=== PATIENT | female | born 1985 | race Caucasian/White ===

== ENCOUNTER 2018-04-26 09:50 | Inpatient (IN) | payer OTHER, SELFPAY ==
[2018-04-26 09:44] VITALS: BMI 23.6
[2018-04-26 09:49] LABS: ROM Internal Control Test YES-OK TO RESULT pt. (Internal QC)
[2018-04-26 09:50] LABS: ROM Patient Test POSITIVE (Negative)
[2018-04-26] MEDS: Betamethasone/Betamethasone 30 MG/5 ML Vial 12 MG IM (10:29)
[2018-04-26] MEDS: Lactated Ringers 1,000 ML 50 ML IV ×2 (10:55→18:39)
[2018-04-26 11:14] LABS: Hematocrit 33.5 % (37-47); Hemoglobin 10.7 g/dl (12.0-15.0); Mean Corp Hgb Conc 31.9 g/gl (32-36); Mean Corpuscular Hgb 28.3 pg (27.0-32.0); Mean Corpuscular Volume 88.6 fL (81-99); Mean Platelet Vol. 10.1 fl (6.2-12.0); Platelet Count 227 K/mm3 (150-450); RBC Distribution Width CV 13.3 % (11.6-14.6); RBC Distribution Width SD 42.6 fl (35.1-43.9); Red Blood Count 3.78 M/mm3 (4.2-5.4)
[2018-04-26 11:21] LABS: Scan Indicated on CBC? Y/N NO
[2018-04-26 11:48] LABS: Group B Strep DNA By PCR Negative (Negative); Internal Control PASS; Probe Check PASS; Specimen Processing Control PASS
[2018-04-26] MEDS: Oxytocin 30 units/NS 500 ml 30 UNITS/500 ML IV.SOLN IV (11:48)
[2018-04-26] MEDS: fentaNYL-bupivacaine (epidural) 100 ML BAG EPIDURAL ×2 (14:51→19:13)
--- NOTE | 2018-04-26 16:34 | PCM.HP.OB ---
History Date of Admission: 04/26/18 Final GRETTA: 05/29/18 Final GRETTA Source: US <20 weeks Gestational age: 35 Weeks and 2 Days History of this : 32-year-old 2 para 1 female presents at 35 weeks 2 days with EDC of 3 05/09/2018 LMP consistent with first trimester ultrasound can presents complaining of rupture of membranes. She had a large gush of clear fluid at 6:45 AM. She not had any significant contractions before this. She had no gross vaginal bleeding. Her has been uncomplicated to date. Last was an uncomplicated vaginal delivery at 37 weeks after spontaneous rupture of membranes. Allergies No Known Drug Allergies Allergy (Verified 04/26/18 09:45) Unknown Home Medications: Home Medications Vits [Prenatabs FA ] 1 tablet PO DAILY 02/18/13 Smoking Status: Never smoker Alcohol: None Number of Fetus(es): 1 Heart Tracing: Normal baseline, moderate variability, spontaneous accelerations. no Recurrent deceleration TOCO Analysis: Contractions every 3 to 4 minutes History Past Pregnancies: Past Pregnancies Delivery Date Name GA/Weeks Outcome Route Weight Infant Gender Labor Length Anesthesia Delivery Location Provider FOB Expected Delivery Method: Spontaneous Vaginal Review of Systems Constitutional: Denies: Chills, Fever Cardiovascular: Denies: Chest Pain Respiratory: Denies: Cough Skin: Denies: Rash Physical Exam General: Alert, Cooperative, No apparent distress Cardiovascular: Regular rate Lungs: Normal air movement Abdomen: Soft, Non Tender, Gravid, Appropriate for Gestational Age Extremities:: No edema [employer]: Normal external genitalia Estimated gestational size: Appropriate for gestational size Presentation: Cephalic Cervix Dilation (cm): 3 - mid position, medium consistency Station: -2 Effacement (%): 70 Assessment/Plan This is a 32 year-old, at 35-2/7 weeks gestation with premature rupture of membranes. Received betamethasone IM x1. Group B strep was negative. 1 dose of antibiotic prophylaxis was given before rapid test came back negative. No need for further antibiotics if patient remains afebrile. Estimated weight is approximately 3000 g and pelvis is clinically adequate to expect vaginal delivery Epidural, nitrous oxide or Nubain as needed for pain control.
[2018-04-26] MEDS: Oxytocin 30 units/NS 500 ml 30 UNITS/500 ML IV.SOLN 334 UNITS IV (20:27)
--- NOTE | 2018-04-26 20:57 | PCM.DCVAG ---
Discharge Diet: No Restrictions Discharge Activity: Return to Normal Activity, May not drive while taking narcotic pain medications., May Shower May resume sexual activity in: 4-6 weeks Additional Activity Instructions:: Nothing in the vagina for 4-6 weeks. You may return to work/school in 6 weeks. Call your doctor if your incision/area has: Continuous Slow Oozing, Sudden Increased Bleeding, Increased Pain/ Swelling, Increased Redness, Foul Smelling Discharge Additional Instructions: If you experience any of the following, contact your healthcare provider. Bleeding that soaks a pad every hour for 2 hours Fever 100.4 or higher Unrelieved incision or abdominal pain Swelling, redness, discharge or bleeding from your incision or episiotomy site Your incision begins to separate Problems urinating (including inability to urinate or burning while urinating). Visual changes Severe headache Flu-like symptoms Pain or redness in one of both of your breasts Pain, warmth, tenderness or swelling in your legs, especially the calf area Frequent nausea and vomiting Symptoms of depression or anxiety If you experience any of the following, call 911 or go to the nearest Emergency Room. Chest pain Problems breathing Seizure activity Partial or complete paralysis of a body part, slurred speech, weakness or drooping of the face, or a sudden inability to walk or hold your balance Allergies/Adverse Reactions: Allergies No Known Drug Allergies Allergy (Verified 04/26/18 09:45) Unknown Medications to take at Discharge Vits [Prenatabs FA ] 1 tablet PO DAILY 02/18/13 Please Follow Up With: Enedelia Garcia MD - [phone] When: Call to make an appointment with your doctor in 1-2 weeks if desired and 6 weeks. If you had elevated Blood Pressure or 4th degree laceration you will need to be seen in 2 weeks. Test Results: Test results from this visit will be discussed in further detail at your follow-up appointment, if applicable.
--- NOTE | 2018-04-26 20:58 | DCINST_ITS ---
Discharge Diet: No Restrictions Discharge Activity: Return to Normal Activity, May not drive while taking narcotic pain medications., May Shower May resume sexual activity in: 4-6 weeks Additional Activity Instructions:: Nothing in the vagina for 4-6 weeks. You may return to work/school in 6 weeks. Call your doctor if your incision/area has: Continuous Slow Oozing, Sudden Increased Bleeding, Increased Pain/ Swelling, Increased Redness, Foul Smelling Discharge Additional Instructions: If you experience any of the following, contact your healthcare provider. * Bleeding that soaks a pad every hour for 2 hours * Fever 100.4 or higher * Unrelieved incision or abdominal pain * Swelling, redness, discharge or bleeding from your incision or episiotomy site * Your incision begins to separate * Problems urinating (including inability to urinate or burning while urinating). * Visual changes * Severe headache * Flu-like symptoms * Pain or redness in one of both of your breasts * Pain, warmth, tenderness or swelling in your legs, especially the calf area * Frequent nausea and vomiting * Symptoms of depression or anxiety If you experience any of the following, call 911 or go to the nearest Emergency Room. * Chest pain * Problems breathing * Seizure activity * Partial or complete paralysis of a body part, slurred speech, weakness or drooping of the face, or a sudden inability to walk or hold your balance Allergies/Adverse Reactions: Allergies No Known Drug Allergies Allergy (Verified 04/26/18 09:45) Unknown Medications to take at Discharge Vits [Prenatabs FA ] 1 tablet PO DAILY 02/18/13 Please Follow Up With: Enedelia Garcia MD - [phone] When: Call to make an appointment with your doctor in 1-2 weeks if desired and 6 weeks. If you had elevated Blood Pressure or 4th degree laceration you will need to be seen in 2 weeks. Test Results: Test results from this visit will be discussed in further detail at your follow- up appointment, if applicable.
[2018-04-26] MEDS: Oxytocin 30 units/NS 500 ml 30 UNITS/500 ML IV.SOLN 167 UNITS IV (20:59)
[2018-04-26] MEDS: 0.9% Saline Lock 10 ML Syringe IV (22:51)
[2018-04-27 01:50] VITALS: BP 124/79; PULSE 81; RESP 18; TEMP 37.2; O2SAT 99
[2018-04-27 05:11] VITALS: BP 131/73; PULSE 75; RESP 16; TEMP 37.2; O2SAT 99
[2018-04-27] MEDS: Acetaminophen 500 MG Tablet 1000 MG PO (05:18)
[2018-04-27 08:00] VITALS: BP 122/80; PULSE 90; RESP 18; TEMP 37.2
[2018-04-27 12:00] VITALS: BP 126/83; PULSE 88; RESP 18; TEMP 36.4
[2018-04-27] MEDS: Ibuprofen 100 MG/5 ML UDC 800 MG PO ×2 (12:00→19:53)
--- NOTE | 2018-04-27 12:41 | PCM.OB.VAG ---
Vaginal Delivery Maternal Presentation: Spontaneous Rupture of Membranes Method of Induction: Pitocin Medical Reason for Induction: Premature Rupture of Membranes - Amniotic Membrane Rupture Type: Spontaneous at home Amniotic Fluid Description: Clear Final GRETTA: 05/29/18 Gestational age: 35w 2d Date of Procedure: 04/26/18 Pre-Operative Diagnosis: premature rupture of membranes at 35 weeks Post-Operative Diagnosis: same Surgery/ Procedure Performed: Spontaneous Vaginal Delivery Type of Anesthesia: Epidural Description of Procedure: A vigorous male infant was delivered SALVATORE over a second-degree perineal laceration. A tight nuchal cord x1 was reduced. The remainder the infant was delivered with maternal pushing and gentle traction only in less than 15 seconds. The Pitocin infusion was initiated for active management of the third stage. The cord was clamped and cut after 1 minute. The infant was attended to by the waiting nursing staff boat joiner helper. The placenta was delivered spontaneously and intact. The cervix and vagina were intact. The second-degree perineal laceration was repaired with 3-0 Vicryl suture in a running standard fashion. Sponge and needle counts were correct. A vaginal sweep was completed by me. Presentation: SALVATORE Placental Delivery Description: Spontaneous Placenta Disposition: Sent to Pathology Cord Vessel Description: 3 Vessels Nuchal Cord Compression: Without compression Cord Gases drawn per routine: ABG, VBG Cord Entanglement: Around neck x 1, tight Drain: Baltazar to straight drain Estimated Blood Loss: 300 A gender: Male (1 minute): 8 (5 minute): 7 Episiotomy Description: None Laceration: 2nd degree Medications given after delivery: IV Pitocin Complications: None
--- NOTE | 2018-04-27 12:55 | PCM.PN.OB ---
Subjective: Pain well controlled. Average lochia. No complaints. - Physical Exam General: Alert, Cooperative, No apparent distress Vital Signs Temp Pulse Resp BP Pulse Ox 98.9 F 90 18 122/80 H 99 04/27/18 08:00 04/27/18 08:00 04/27/18 08:00 04/27/18 08:00 04/27/18 05:11 Oxygen Delivery Method Room Air Weight: 66.315 kg Body Mass Index (BMI) 23.6 Intake and Output for Last 24 Hours 04/25/18 04/26/18 04/27/18 23:59 23:59 23:59 Intake Total 5674 / 5674 Output Total 2850 / 2850 2099 / 2099 Balance 2824 / 2824 -2100 / -2099 Medical Necessity - Tobacco Use Smoking Status: Never smoker Assessment/Plan day #1. is in the special care nursery but doing well. Patient will work on pumping Routine care for patient.
[2018-04-27 15:59] VITALS: BP 111/66; PULSE 64; RESP 13; TEMP 36.8; O2SAT 97
[2018-04-27 19:45] VITALS: BP 111/73; PULSE 70; RESP 18; TEMP 37.1; O2SAT 99
[2018-04-28 05:04] VITALS: BP 101/69; PULSE 87; RESP 18; TEMP 36.8
[2018-04-28] MEDS: Ibuprofen 100 MG/5 ML UDC 800 MG PO ×2 (05:39→15:42)
[2018-04-28 08:34] VITALS: BP 120/69; PULSE 70; RESP 18; TEMP 36.6
--- NOTE | 2018-04-28 08:38 | PCM.PN.OB ---
Subjective: pain well controlled, average lochia, no N/V, no BM yet - Physical Exam General: Alert, Cooperative, No apparent distress Abdomen: Soft Vital Signs Temp Pulse Resp BP Pulse Ox 97.9 F 70 18 120/69 99 04/28/18 08:34 04/28/18 08:34 04/28/18 08:34 04/28/18 08:34 04/27/18 19:45 Oxygen Delivery Method Room Air Weight: 66.315 kg Body Mass Index (BMI) 23.6 Intake and Output for Last 24 Hours 04/26/18 04/27/18 04/28/18 23:59 23:59 23:59 Intake Total 5674 / 5674 Output Total 2850 / 2850 2099 / 2099 Balance 2824 / 2824 -2099 / -2099 Medical Necessity - Tobacco Use Smoking Status: Never smoker Assessment/Plan PPD#2 routine care infant able to latch on now, still in special care nursery patient d/c to [facility]
--- NOTE | 2018-04-28 08:42 | PN.OBGYN_ITS ---
Subjective: pain well controlled, average lochia, no N/V, no BM yet - Physical Exam General: Alert, Cooperative, No apparent distress Abdomen: Soft Vital Signs Temp Pulse Resp BP Pulse Ox 97.9 F 70 18 120/69 99 04/28/18 08:34 04/28/18 08:34 04/28/18 08:34 04/28/18 08:34 04/27/18 19:45 Oxygen Delivery Method Room Air Weight: 66.315 kg Body Mass Index (BMI) 23.6 Intake and Output for Last 24 Hours 04/26/18 04/27/18 04/28/18 23:59 23:59 23:59 Intake Total 5674 / 5674 Output Total 2850 / 2850 2099 / 2099 Balance 2824 / 2824 -2099 / -2099 Medical Necessity - Tobacco Use Smoking Status: Never smoker Assessment/Plan PPD#2 routine care infant able to latch on now, still in special care nursery patient d/c to [facility]
[2018-04-28 14:00] VITALS: BP 122/72; PULSE 88; RESP 18; TEMP 36.8
[2018-04-28 19:00] VITALS: BP 128/62; PULSE 72; RESP 16; TEMP 36.8
--- NOTE | 2018-04-28 19:55 | NURSING ---
1900- discharged to courtesy room
== END 2018-04-28 19:00 | disposition home or self-care (01) | DRG 807 ==
LOC: WPOUT 09:54
PROVIDERS: Obstetrics & Gynecology; Admitting Provider Obstetrics & Gynecology; Referring Provider Obstetrics & Gynecology; Visit Provider Obstetrics & Gynecology
DX: O42.113 Preterm premature rupture of membranes, onset of labor more than 24 hours following rupture, third trimester (principal); Z37.0 Single live birth; O69.81X0 Labor and delivery complicated by cord around neck, without compression, not applicable or unspecified; O70.1 Second degree perineal laceration during delivery; Z3A.35 35 weeks gestation of pregnancy
CPT/HCPCS: 59025; 59050; 84112; 85027; 86850; 86900; 87081; 87653; 99218; J7120; A4216; G0378; J0702

== ENCOUNTER 2020-06-10 05:34 | Inpatient (IN) | payer OTHER, SELFPAY ==
[2020-06-10] VITALS (36 sets, daily range): BP systolic 106–146; BP diastolic 58–88; PULSE 68–105; RESP 18; TEMP 36.5–37.4; O2SAT 98–100; BMI 25.8
[2020-06-10 05:33] LABS: ROM Internal Control Test YES-OK TO RESULT pt. (Internal QC)
[2020-06-10 05:34] LABS: ROM Patient Test POSITIVE (Negative)
[2020-06-10] MEDS: Lactated Ringers 1,000 ML 50 ML IV (05:50)
[2020-06-10 06:11] LABS: Absolute Lymphocyte Count 2.59 X10^3/uL (0.83-4.51); Absolute Neutrophil Count 5.4 X10^3/uL (2.0-7.7); Basophil# 0.03 X10^3/uL; Basophil% 0.3 % (0-1); Eosinophil# 0.08 X10^3/uL; Eosinophils% 0.9 % (0-5); Hematocrit 33.9 % (37-47); Hemoglobin 10.7 g/dL (12.0-15.0); Lymphocyte # 2.59 X10^3/ul (4.0); Lymphocyte % 28.8 % (19-41); Mean Corp Hgb Conc 31.6 g/dL (32-36); Mean Corpuscular Hgb 28.3 pg (27.0-32.0); Mean Corpuscular Volume 89.7 fL (81-99); Monocyte% 8.9 % (0-10); NRBC Flagged by Analyzer 0 % (0-5); Neutrophil % 60.2 % (47-70); Platelet Count 254 K/mm3 (150-450); RBC Distribution Width CV 13.3 % (11.6-14.6); RBC Distribution Width SD 43.8 fl (35.1-43.9); Red Blood Count 3.78 M/mm3 (4.2-5.4)
[2020-06-10] MEDS: Lactated Ringers 500 ML 999 ML IV (07:45)
[2020-06-10] MEDS: fentaNYL-bupivacaine (epidural) 100 ML BAG EPIDURAL (08:43)
[2020-06-10] MEDS: Oxytocin 30 units/NS 500 ml 30 UNITS/500 ML IV.SOLN IV (08:55)
--- NOTE | 2020-06-10 11:35 | PCM.HP.OB ---
- Problem List (1) 37 weeks gestation of Status: Acute (2) Multiparous Status: Acute (3) SROM (spontaneous rupture of membranes) Status: Acute (4) AMA (advanced maternal age) multigravida 35+ Status: Acute (5) History of delivery Status: Acute History Date of Admission: 06/10/20 Final GRETTA: 07/01/20 Final GRETTA Source: US <20 weeks Gestational age: 37 Weeks and 0 Days History of this : This is a 34 year-old, at 37 wk gestation who presents with SROM for clear fluid at home. Having irregular ctx's. Medical History: Medical History (Last Updated 06/10/20 @ 11:[address] Tanya Saez, DO) History of depression Z86.59 History of migraine Z86.69 IBS (irritable bowel syndrome) K58.9 Allergies No Known Drug Allergies Allergy (Verified 06/10/20 05:19) Unknown Home Medications: Home Medications Vits [Prenatabs FA ] 1 tablet PO DAILY 02/18/13 Smoking Status: Never smoker Number of Fetus(es): 1 NST - FHR Rate Baby A FHR Category:: Category I History Past Pregnancies: Past Pregnancies Delivery Date Name GA/ Weeks Outcome Route Wt Sex Labor Length Anesthesia Delivery Location Provider FOB Labs: See [facility] record Expected Delivery Method: Spontaneous Vaginal Physical Exam Vitals: Vital Signs Temp Pulse BP Pulse Ox 98.1 F 83 118/72 100 06/10/20 11:03 06/10/20 11:03 06/10/20 11:03 06/10/20 11:03 Assessment/Plan All Active Problems 37 weeks gestation of (Acute) Multiparous (Acute) SROM (spontaneous rupture of membranes) (Acute) AMA (advanced maternal age) multigravida 35+ (Acute) History of delivery (Acute) This is a 34 year-old at 37 wks admitted with SROM. - Routine intrapartum care - Covid test - Epidural for pain control - Pit for augmentation - GBS negative - Pelvis adequate and EFW expected to be < 4500 g - Anticipate vaginal delivery
[2020-06-10] MEDS: Oxytocin 30 units/NS 500 ml 30 UNITS/500 ML IV.SOLN 334 UNITS IV (12:33)
--- NOTE | 2020-06-10 12:52 | PCM.OPRPT ---
Problem List (1) 37 weeks gestation of Status: Acute (2) Multiparous Status: Acute (3) SROM (spontaneous rupture of membranes) Status: Acute (4) AMA (advanced maternal age) multigravida 35+ Status: Acute (5) History of delivery Status: Acute (6) Vaginal delivery Status: Acute (7) Second degree perineal laceration Status: Acute Report of Operation Date of Procedure: 06/10/20 Pre-Operative Diagnosis: 37 week gestation, SROM Post-Operative Diagnosis: As above, Surgery/Procedure Performed:: Description of Surgical Findings:: Patient was complete and pushing for 2 contractions. Second-degree perineal laceration noted. Normal uterine cavity. VMI delivered in OA position. Type of Anesthesia:: Epidural Special Medications: None Specimen's removed: Placenta Drains: Baltazar Estimated Blood Loss (mL): 250 Description of Procedure: Patient was complete and pushing for 2 contractions. The head of the infant was delivered in occiput anterior position followed by the anterior shoulder with gentle downward traction. The anterior shoulder was delivered without any force or delay, followed by the posterior shoulder and body of without any force or delay. Viable male infant was delivered atraumatically placed on maternal abdomen. The cord was clamped and cut after a 60 sec delay. Cord blood was obtained. Placenta was delivered with uterine massage. The placenta was normal-appearing and intact with a three-vessel cord. Uterus was explored x1. The fundus was firm and bleeding was hemostatic. Second-degree perineal laceration was repaired with 3-0 Vicryl in usual sterile fashion. Sponge and needle counts were correct. Vaginal sweep was performed. Grafts/Implants Used: None - Complications None - Admit VTE Documentation VTE Present on Admission: No Vaginal Delivery Maternal Presentation: Spontaneous Rupture of Membranes Amniotic Fluid Description: Clear Surgery/ Procedure Performed: Spontaneous Vaginal Delivery Type of Anesthesia: Epidural Presentation: Vertex Placental Delivery Description: Expressed Cord Vessel Description: 3 Vessels Cord Entanglement: None A gender: Male (1 minute): 8 (5 minute): 9 Episiotomy Description: None Laceration: 2nd degree Medications given after delivery: IV Pitocin Complications: None
[2020-06-10] MEDS: Ibuprofen 100 MG/5 ML UDC 600 MG PO (20:08)
[2020-06-11 03:55] VITALS: BP 124/78; PULSE 84; RESP 18; O2SAT 98
[2020-06-11] MEDS: Ibuprofen 100 MG/5 ML UDC 600 MG PO ×2 (03:56→14:41)
[2020-06-11 08:30] VITALS: BP 121/80; PULSE 81; RESP 16; TEMP 36.9; O2SAT 98
--- NOTE | 2020-06-11 08:36 | PCM.PN.OB ---
Patient Problems: Active and Suspected Problems (Last Updated 06/10/20 @ 11:[address] Tanya Saez, DO) 37 weeks gestation of (Acute) Multiparous (Acute) SROM (spontaneous rupture of membranes) (Acute) AMA (advanced maternal age) multigravida 35+ (Acute) History of delivery (Acute) Vaginal delivery (Acute) Second degree perineal laceration (Acute) Subjective: Patient seen at bedside. Skin to skin with infant. going well. Ambulating and voiding without difficulty. Desires discharge home tomorrow morning. - Physical Exam Vitals/I&O's: Vital Signs Temp Pulse Resp BP Pulse Ox 98.1 F 84 18 124/78 H 98 06/10/20 23:44 06/11/20 03:55 06/11/20 03:55 06/11/20 03:55 06/11/20 03:55 Oxygen Delivery Method Room Air Weight: 160 lb Body Mass Index (BMI) 25.8 Intake and Output for Last 24 Hours 06/09/20 06/10/20 06/11/20 22:59 23:59 23:59 Intake Total Output Total Balance General: Alert, Oriented x3 HEENT: Atraumatic Lungs: Normal air movement Cardiovascular: Regular rate Abdomen: Bowel Sounds Present, Soft, Non Tender Extremities: No Calf Tenderness Skin: No rashes Neurological: Cranial nerves II-XII grossly intact Microbiology Past 72 Hours 06/10/20 05:55 Mucosa - Nasopharyngeal SARS-CoV-2 Antigen (Rapid) - Final Current Medications Acetaminophen (Acetaminophen 500 Mg Tablet) 1,000 mg PO Q8H PRN PRN PRN Reason: Pain Score 1-3 Bisacodyl (Bisacodyl 10 Mg Suppository) 10 mg RC UD PRN PRN Reason: If no BM Dibucaine (Dibucaine 30 Gm Tube) 1 applic TOPICAL TID PRN PRN; Protocol PRN Reason: Discomfort Hydrocortisone (Hydrocortisone 2.5% Crm) 1 applic TOPICAL TID PRN PRN; Protocol PRN Reason: Discomfort Ibuprofen (Ibuprofen 100 Mg/5 Ml Udc) 600 mg PO Q6H PRN PRN PRN Reason: Pain Score 1-3 Last Admin: 06/11/20 03:56 Dose: 600 mg Documented by: Methylergonovine Maleate (Methylergonovine 0.2 Mg/Ml Ampul) 0.2 mg IM X1 PRN PRN Reason: Excess bleeding/uterine atony Ondansetron HCl (Ondansetron 4 Mg/2 Ml Vial) 4 mg IV Q4H PRN PRN PRN Reason: Nausea Senna/Docusate Sodium (Senna/Docusate Sodium 1 Tablet) 1 - 2 tablet PO DAILY PRN PRN PRN Reason: Constipation Simethicone (Simethicone 80 Mg Tablet) 80 mg PO PCHS PRN PRN Reason: Indigestion/Stomach pain Sodium Chloride (0.9% Saline Lock 10 Ml Syringe) 5 - 15 ml IV UD PRN PRN Reason: SALINE FLUSH Medical Necessity - Tobacco Use Smoking Status: Never smoker Assessment/Plan All Active Problems (Last Updated 06/10/20 @ 11:[address] Tanya Saez, DO) 37 weeks gestation of (Acute) Multiparous (Acute) SROM (spontaneous rupture of membranes) (Acute) AMA (advanced maternal age) multigravida 35+ (Acute) History of delivery (Acute) Vaginal delivery (Acute) Second degree perineal laceration (Acute) PPD #1 Routine care Pain management Breast feeding support Anticipate discharge home tomorrow
[2020-06-11 14:36] VITALS: BP 123/79; PULSE 77; RESP 16; TEMP 36.7; O2SAT 100
[2020-06-11 19:40] VITALS: BP 119/75; PULSE 72; RESP 16; TEMP 37.1; O2SAT 99
[2020-06-12 02:04] VITALS: BP 125/82; PULSE 85; RESP 16; O2SAT 97
[2020-06-12] MEDS: Ibuprofen 100 MG/5 ML UDC 600 MG PO ×2 (02:09→13:18)
--- NOTE | 2020-06-12 08:55 | DCINST_ITS ---
Discharge Activity: May Drive, May Shower May resume sexual activity in: 6 weeks Additional Instructions: If you experience any of the following, contact your healthcare provider. * Bleeding that soaks a pad every hour for 2 hours * Fever 100.4 or higher * Unrelieved incision or abdominal pain * Swelling, redness, discharge or bleeding from your incision or episiotomy site * Your incision begins to separate * Problems urinating (including inability to urinate or burning while urinating) . * Visual changes * Severe headache * Flu-like symptoms * Pain or redness in one of both of your breasts * Pain, warmth, tenderness or swelling in your legs, especially the calf area * Frequent nausea and vomiting * Symptoms of depression or anxiety If you experience any of the following, call 911 or go to the nearest Emergency Room. * Chest pain * Problems breathing * Seizure activity * Partial or complete paralysis of a body part, slurred speech, weakness or drooping of the face, or a sudden inability to walk or hold your balance Allergies/Adverse Reactions: Allergies No Known Drug Allergies Allergy (Verified 06/10/20 05:19) Unknown Medications to take at Discharge Vits [Prenatabs FA ] 1 tablet PO DAILY 02/18/13 Acetaminophen [Tylenol] 1,000 mg PO Q8H PRN PRN tablet 06/12/20 Ibuprofen Liquid [Motrin Liquid] 600 mg PO Q6H PRN PRN udc 06/12/20 Test Results: Test results from this visit will be discussed in further detail at your follow- up appointment, if applicable.
--- NOTE | 2020-06-12 08:55 | PCM.DCVAG ---
Discharge Activity: May Drive, May Shower May resume sexual activity in: 6 weeks Additional Instructions: If you experience any of the following, contact your healthcare provider. Bleeding that soaks a pad every hour for 2 hours Fever 100.4 or higher Unrelieved incision or abdominal pain Swelling, redness, discharge or bleeding from your incision or episiotomy site Your incision begins to separate Problems urinating (including inability to urinate or burning while urinating). Visual changes Severe headache Flu-like symptoms Pain or redness in one of both of your breasts Pain, warmth, tenderness or swelling in your legs, especially the calf area Frequent nausea and vomiting Symptoms of depression or anxiety If you experience any of the following, call 911 or go to the nearest Emergency Room. Chest pain Problems breathing Seizure activity Partial or complete paralysis of a body part, slurred speech, weakness or drooping of the face, or a sudden inability to walk or hold your balance Allergies/Adverse Reactions: Allergies No Known Drug Allergies Allergy (Verified 06/10/20 05:19) Unknown Medications to take at Discharge Vits [Prenatabs FA ] 1 tablet PO DAILY 02/18/13 Acetaminophen [Tylenol] 1,000 mg PO Q8H PRN PRN tablet 06/12/20 Ibuprofen Liquid [Motrin Liquid] 600 mg PO Q6H PRN PRN udc 06/12/20 Test Results: Test results from this visit will be discussed in further detail at your follow-up appointment, if applicable.
--- NOTE | 2020-06-12 08:56 | PCM.PN.OB ---
Patient Problems: Active and Suspected Problems (Last Updated 06/10/20 @ 11:[address] Tanya Saez, DO) 37 weeks gestation of (Acute) Multiparous (Acute) SROM (spontaneous rupture of membranes) (Acute) AMA (advanced maternal age) multigravida 35+ (Acute) History of delivery (Acute) Vaginal delivery (Acute) Second degree perineal laceration (Acute) Subjective: Reports some perineal soreness. She hasn't had a BM since delivery & is anxious about it. - Physical Exam Vitals/I&O's: Vital Signs Temp Pulse Resp BP Pulse Ox 98.7 F 85 16 125/82 H 97 06/11/20 19:40 06/12/20 02:04 06/12/20 02:04 06/12/20 02:04 06/12/20 02:04 Oxygen Delivery Method Room Air Weight: 160 lb Body Mass Index (BMI) 25.8 Intake and Output for Last 24 Hours 06/10/20 06/11/20 06/12/20 23:59 23:59 23:59 Intake Total Output Total Balance General: Alert, Oriented x3 Abdomen: Soft, Non Tender, Non-Distended - ff mid & below umb Extremities: No Calf Tenderness Microbiology Past 72 Hours 06/10/20 05:55 Mucosa - Nasopharyngeal SARS-CoV-2 Antigen (Rapid) - Final Current Medications Acetaminophen (Acetaminophen 500 Mg Tablet) 1,000 mg PO Q8H PRN PRN PRN Reason: Pain Score 1-3 Bisacodyl (Bisacodyl 10 Mg Suppository) 10 mg RC UD PRN PRN Reason: If no BM Dibucaine (Dibucaine 30 Gm Tube) 1 applic TOPICAL TID PRN PRN; Protocol PRN Reason: Discomfort Hydrocortisone (Hydrocortisone 2.5% Crm) 1 applic TOPICAL TID PRN PRN; Protocol PRN Reason: Discomfort Ibuprofen (Ibuprofen 100 Mg/5 Ml Udc) 600 mg PO Q6H PRN PRN PRN Reason: Pain Score 1-3 Last Admin: 06/12/20 02:09 Dose: 600 mg Documented by: Methylergonovine Maleate (Methylergonovine 0.2 Mg/Ml Ampul) 0.2 mg IM X1 PRN PRN Reason: Excess bleeding/uterine atony Ondansetron HCl (Ondansetron 4 Mg/2 Ml Vial) 4 mg IV Q4H PRN PRN PRN Reason: Nausea Senna/Docusate Sodium (Senna/Docusate Sodium 1 Tablet) 1 - 2 tablet PO DAILY PRN PRN PRN Reason: Constipation Simethicone (Simethicone 80 Mg Tablet) 80 mg PO PCHS PRN PRN Reason: Indigestion/Stomach pain Sodium Chloride (0.9% Saline Lock 10 Ml Syringe) 5 - 15 ml IV UD PRN PRN Reason: SALINE FLUSH Medical Necessity - Tobacco Use Smoking Status: Never smoker Assessment/Plan All Active Problems (Last Updated 06/10/20 @ 11:[address] Tanya Saez, DO) 37 weeks gestation of (Acute) Multiparous (Acute) SROM (spontaneous rupture of membranes) (Acute) AMA (advanced maternal age) multigravida 35+ (Acute) History of delivery (Acute) Vaginal delivery (Acute) Second degree perineal laceration (Acute) PPD#2 D/c home Prune juice to help with BM & prevent constipation
[2020-06-12 09:07] VITALS: BP 136/93; PULSE 82; RESP 16; TEMP 36.6
[2020-06-12 13:14] VITALS: BP 126/69; PULSE 82; RESP 14; TEMP 37.1
--- NOTE | 2020-06-12 15:48 | NURSING ---
1530- discharged to courtesy room
== END 2020-06-12 15:30 | disposition home or self-care (01) | DRG 807 ==
LOC: WPOUT 05:35 → WP 05:35
PROVIDERS: Admitting Provider Obstetrics & Gynecology; Referring Provider Obstetrics & Gynecology; Visit Provider Obstetrics & Gynecology
DX: O70.1 Second degree perineal laceration during delivery (principal); Z37.0 Single live birth; Z3A.37 37 weeks gestation of pregnancy
CPT/HCPCS: 59025; 59050; 84112; 85025; 86850; 86900; 86901; 87426; 99218; J7120; G0378